=== PATIENT | female | born 1990 | race Caucasian/White ===

== ENCOUNTER → 2018-06-08 13:39 | Outpatient (CLI) | payer OTHER, SELFPAY ==
[2018-06-08 18:43] LABS: Chlamydia Trachomatis by PCR Negative (Negative); Neisserai gonorrhoeae by PCR Negative (Negative); Probe Check PASS; Sample Adequacy Control PASS; Specimen Processing Control PASS
== END ==
PROVIDERS: Visit Provider Obstetrics & Gynecology
DX: Z11.3 Encounter for screening for infections with a predominantly sexual mode of transmission (principal); Z32.01 Encounter for pregnancy test, result positive
CPT/HCPCS: 87491; 87591

== ENCOUNTER → 2018-06-22 14:57 | Outpatient (CLI) | payer OTHER, SELFPAY ==
[2018-06-22 15:50] LABS: Absolute Neutrophil Count 5.8 X10^3/uL (2.0-7.7); Basophil# 0.02 X10^3/uL; Basophil% 0.2 % (0-1); Eosinophil# 0.02 X10^3/uL; Eosinophils% 0.2 % (0-5); Hematocrit 39.5 % (37-47); Hemoglobin 13.2 g/dl (12.0-15.0); Mean Corp Hgb Conc 33.4 g/gl (32-36); Mean Corpuscular Hgb 31.2 pg (27.0-32.0); Mean Corpuscular Volume 93.4 fL (81-99); Mean Platelet Vol. 10.9 fl (6.2-12.0); Monocyte# 0.52 X10^3/uL; Monocyte% 6.4 % (0-10); Neutrophil # 5.82 X10^3/uL (2.7-7.7); Neutrophil % 72.1 % (47-70); Platelet Count 240 K/mm3 (150-450); RBC Distribution Width CV 12.7 % (11.6-14.6); RBC Distribution Width SD 43.1 fl (35.1-43.9); Red Blood Count 4.23 M/mm3 (4.2-5.4); White Blood Count 8.1 K/mm3 (4.4-11.0)
[2018-06-22 15:51] LABS: POSITIVE COUNT NO; POSITIVE DIFFERENTIAL NO; POSITIVE MORPHOLOGY NO
[2018-06-22 16:16] LABS: Color, Urine Yellow (Yellow); Glucose, Dipstick Normal (Normal); Ketone-Dipstick Negative (Negative); Leukocyte Esterase-Dipstick 500 /ul (Negative); Nitrite-Dipstick Negative (Negative); Occult Blood-Urine Negative /ul (Negative); Protein-Dipstick Negative (Negative); Specific Gravity, Urine 1.025 (1.002-1.030); Urine Bilirubin Dipstick Negative (Negative); Urine Clarity Clear (Clear); Urine Urobilinogen Normal (Normal)
[2018-06-22 16:17] LABS: Thyroid Stim Hormone (TSH) 2.02 uIU/mL (0.358-3.74)
[2018-06-22 16:52] LABS: Amphetamine Urine VISTA NEGATIVE (<1000 ng/mL); Barbiturate Urine VISTA NEGATIVE (< 200 ng/mL); Benzodiazepine Urine VISTA NEGATIVE (< 200 ng/mL); Cocaine Urine VISTA NEGATIVE (< 300 ng/mL); Ecstacy Urine VISTA NEGATIVE (< 500 ng/mL); Methadone Urine VISTA NEGATIVE (< 300 ng/mL); PCP Urine VISTA NEGATIVE (< 25 ng/mL); THC Urine VISTA NEGATIVE (< 50 ng/mL); Vista UDS pH Range 6
[2018-06-23 10:09] LABS: HIV - WCH Non-Reactive (Nonreactive); Rubella IgG 26.2 IU/mL
[2018-06-24 11:36] LABS: HEPATITIS B SURFACE AG Negative (Negative); Hep C Antibodies <0.1 s/co ratio (0.0-0.9)
[2018-06-25 03:42] LABS: Prenatal RPR NONREACTIVE (NONREACTIVE)
== END ==
PROVIDERS: Visit Provider Obstetrics & Gynecology
DX: Z34.81 Encounter for supervision of other normal pregnancy, first trimester (principal)
CPT/HCPCS: 36415; 80307; 81002; 84443; 85025; 86703; 86762; 86803; 87340

== ENCOUNTER → 2018-11-01 08:42 | Outpatient (CLI) | payer OTHER, SELFPAY ==
[2018-11-01 12:06] LABS: Hematocrit 37.6 % (37-47); Hemoglobin 12.4 g/dl (12.0-15.0); Mean Corpuscular Hgb 32.2 pg (27.0-32.0); Mean Corpuscular Volume 97.7 fL (81-99); Mean Platelet Vol. 11.7 fl (6.2-12.0); Platelet Count 178 K/mm3 (150-450); RBC Distribution Width CV 12.5 % (11.6-14.6); Red Blood Count 3.85 M/mm3 (4.2-5.4); White Blood Count 8.7 K/mm3 (4.4-11.0)
[2018-11-01 12:07] LABS: Glucose Challenge Gest 1H 50g 102 mg/dL (70-140)
[2018-11-01 12:19] LABS: Scan Indicated on CBC? Y/N NO
== END ==
PROVIDERS: Visit Provider Obstetrics & Gynecology
DX: Z34.83 Encounter for supervision of other normal pregnancy, third trimester (principal)
CPT/HCPCS: 36415; 82950; 85027

== ENCOUNTER → 2018-11-29 09:26 | Outpatient (CLI) | payer OTHER, SELFPAY ==
[2018-11-29 11:10] LABS: Hematocrit 36.8 % (37-47); Hemoglobin 12.2 g/dl (12.0-15.0); Mean Corp Hgb Conc 33.2 g/gl (32-36); Mean Corpuscular Hgb 31.6 pg (27.0-32.0); Mean Corpuscular Volume 95.3 fL (81-99); Platelet Count 185 K/mm3 (150-450); RBC Distribution Width CV 12.4 % (11.6-14.6); RBC Distribution Width SD 42.5 fl (35.1-43.9); Red Blood Count 3.86 M/mm3 (4.2-5.4)
[2018-11-29 11:13] LABS: Scan Indicated on CBC? Y/N NO
[2018-11-29 11:16] LABS: Protein, Urine (Random) 21.9 mg/dL (<11.9)
[2018-11-29 11:18] LABS: ALB/GLOB Ratio 0.8 RATIO (0.9-2.4); AST(SGOT) 18 U/L (15-37); Alanine Aminotransfer ALT/SGPT 28 U/L (13-56); Albumin, Serum 2.8 g/dL (3.2-5.0); Alkaline Phosphatase 98 U/L (45-117); Anion Gap 9 (5-15); BUN 7 mg/dL (7-18); BUN/Creat Ratio 13.1 RATIO (10-20); Calcium,Total 8.2 mg/dL (8.5-10.1); Chloride 108 mmol/L (98-107); Creatinine, Serum 0.54 mg/dL (0.55-1.02); EST Glomerular Filtration Rate 146 mL/min (>60); Est Glom Filt Rate - Afr Amer 177 mL/min (>60); Globulin 3.7 g/dL (2.2-4.2); Glucose 81 mg/dL (74-106); Potassium 3.8 mmol/L (3.5-5.1); Protein, Total 6.5 g/dL (6.4-8.2); Sodium Level 141 mmol/L (136-145); Uric Acid 3.3 mg/dL (2.6-6.0)
== END ==
PROVIDERS: Visit Provider Obstetrics & Gynecology
DX: O13.3 Gestational [pregnancy-induced] hypertension without significant proteinuria, third trimester (principal); Z3A.00 Weeks of gestation of pregnancy not specified
CPT/HCPCS: 36415; 80053; 82570; 84156; 84550; 85027

== ENCOUNTER → 2019-01-04 09:15 | Outpatient (CLI) | payer OTHER, SELFPAY ==
[2019-01-04 10:55] LABS: Hematocrit 36.1 % (37-47); Hemoglobin 11.6 g/dl (12.0-15.0); Mean Corp Hgb Conc 32.1 g/gl (32-36); Mean Corpuscular Hgb 30.8 pg (27.0-32.0); Mean Corpuscular Volume 95.8 fL (81-99); Mean Platelet Vol. 10.8 fl (6.2-12.0); Platelet Count 191 K/mm3 (150-450); RBC Distribution Width CV 12.8 % (11.6-14.6); RBC Distribution Width SD 42.8 fl (35.1-43.9); Red Blood Count 3.77 M/mm3 (4.2-5.4); Scan Indicated on CBC? Y/N NO; White Blood Count 8.7 K/mm3 (4.4-11.0)
[2019-01-04 11:24] LABS: Protein, Urine (Random) 24.6 mg/dL (<11.9)
[2019-01-04 11:35] LABS: ALB/GLOB Ratio 0.7 RATIO (0.9-2.4); AST(SGOT) 19 U/L (15-37); Alanine Aminotransfer ALT/SGPT 29 U/L (13-56); Albumin, Serum 2.8 g/dL (3.2-5.0); Alkaline Phosphatase 167 U/L (45-117); Anion Gap 8 (5-15); BUN 6 mg/dL (7-18); BUN/Creat Ratio 9.8 RATIO (10-20); Calcium,Total 8.3 mg/dL (8.5-10.1); Chloride 106 mmol/L (98-107); Creatinine, Serum 0.61 mg/dL (0.55-1.02); EST Glomerular Filtration Rate 125 mL/min (>60); Est Glom Filt Rate - Afr Amer 151 mL/min (>60); Globulin 3.8 g/dL (2.2-4.2); Glucose 83 mg/dL (74-106); Potassium 3.9 mmol/L (3.5-5.1); Protein, Total 6.6 g/dL (6.4-8.2); Sodium Level 139 mmol/L (136-145); Uric Acid 3.5 mg/dL (2.6-6.0)
== END ==
PROVIDERS: Visit Provider Obstetrics & Gynecology
DX: O13.3 Gestational [pregnancy-induced] hypertension without significant proteinuria, third trimester (principal); Z36.85 Encounter for antenatal screening for Streptococcus B; Z3A.00 Weeks of gestation of pregnancy not specified
CPT/HCPCS: 36415; 80053; 82570; 84156; 84550; 85027; 87081

== ENCOUNTER → 2019-01-05 10:17 | Outpatient (CLI) | payer OTHER, SELFPAY ==
[2019-01-05 11:24] LABS: 24 Hour Urine Protein 294.7 mg/24HR (<150 MG/24HR); 24HR. UA Prot. Total Volume 3070 mL; Urine Protein (24 Hour) 9.6 mg/dL (<11.9)
== END ==
PROVIDERS: Visit Provider Obstetrics & Gynecology
DX: O13.3 Gestational [pregnancy-induced] hypertension without significant proteinuria, third trimester (principal); Z3A.00 Weeks of gestation of pregnancy not specified
CPT/HCPCS: 81050; 82570; 84156

== ENCOUNTER 2019-01-12 22:05 | Inpatient (IN) | payer OTHER, SELFPAY ==
[2019-01-12] MEDS: Lactated Ringers 1,000 ML 50 ML IV (22:40)
[2019-01-12 22:53] LABS: Absolute Lymphocyte Count 1.96 X10^3/ul (0.83-4.51); Absolute Neutrophil Count 6.4 X10^3/uL (2.0-7.7); Basophil# 0.02 X10^3/uL; Basophil% 0.2 % (0-1); Eosinophil# 0.04 X10^3/uL; Eosinophils% 0.4 % (0-5); Hematocrit 35.2 % (37-47); Hemoglobin 11.7 g/dl (12.0-15.0); Lymphocyte # 1.96 X10^3/ul (4.0); Lymphocyte % 21.9 % (19-41); Mean Corp Hgb Conc 33.2 g/gl (32-36); Mean Corpuscular Hgb 30.8 pg (27.0-32.0); Mean Corpuscular Volume 92.6 fL (81-99); Mean Platelet Vol. 10.8 fl (6.2-12.0); Monocyte# 0.51 X10^3/uL; Monocyte% 5.7 % (0-10); Neutrophil # 6.39 X10^3/uL (2.7-7.7); Neutrophil % 71.2 % (47-70); Platelet Count 185 K/mm3 (150-450); RBC Distribution Width SD 43.7 fl (35.1-43.9)
[2019-01-12 22:54] LABS: POSITIVE COUNT NO; POSITIVE DIFFERENTIAL NO; POSITIVE MORPHOLOGY NO
--- NOTE | 2019-01-12 23:03 | PCM.HP.OB ---
- Problem List (1) 38 weeks gestation of Status: Acute (2) Gestational hypertension Status: Acute Qualifiers: Trimester: third trimester Qualified Code(s): O13.3 - Gestational [-induced] hypertension without significant proteinuria, third trimester History Date of Admission: 01/12/19 Final ÓSCAR: 01/24/19 Final ÓSCAR Source: LMP Gestational age: 38 Weeks and 4 Days History of this : This is a 28 year-old, G [2], P [1], at 38 2/7 weeks gestational age with hx gestational hypertension presenting for induction of labor. She denies headache, vision changes, shortness of breath or abdominal pain. + mild contractions felt in her back. Denies vaginal bleeding or fluid leaking. Fetus is active. 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 Allergies No Known Allergies Allergy (Verified 01/12/19 22:15) Home Medications: Home Medications RX: Vits [Prenatabs FA ] 1 tablet PO DAILY 10/10/16 Aspirin [Aspirin, Baby] 81 mg PO DAILY@0800 01/12/19 Smoking Status: Never smoker Alcohol: None Number of Fetus(es): 1 Heart Tracin, moderate variability, + accelerations, no decelerations TOCO Analysis: 1/10 min History Past Pregnancies: Past Pregnancies Delivery Date Name GA/Weeks Outcome Route Weight Gender Labor Length Anesthesia Delivery Location Provider FOB 11/2016 Mack 38 Living VAVD 8lb6oz MALE 24 Epidural [facility] Labs: Labs 01/12/19 01/14/19 22:35 06:05 WBC 9.0 13.4 H RBC 3.80 L 3.34 L Hgb 11.7 L 10.2 L Hct 35.2 L 31.7 L MCV 92.6 94.9 MCH 30.8 30.5 MCHC 33.2 32.2 RDW 13.0 12.5 RDW Differential 43.7 41.8 Plt Count 185 194 MPV 10.8 11.3 Immature Gran % (Auto) 0.600 Neut % (Auto) 71.2 H Lymph % (Auto) 21.9 [place] % (Auto) 5.7 Eos % (Auto) 0.4 Baso % (Auto) 0.2 Absolute Neuts (auto) 6.4 Absolute Lymphs (auto) 1.96 Total Counted Not Reportable Mom's Problem List Problem Status Onset Code 38 weeks gestation of Acute Z3A.38 Gestational hypertension Acute O13.9 Duplicated collecting system Chronic Q62.5 Mom's Labs & Results 01/12/19 01/12/19 01/13/19 22:35 22:35 07:54 WBC 9.0 RBC 3.80 L Hgb 11.7 L Hct 35.2 L MCV 92.6 MCH 30.8 MCHC 33.2 RDW 13.0 RDW Differential 43.7 Plt Count 185 MPV 10.8 Immature Gran % (Auto) 0.600 Neut % (Auto) 71.2 H Lymph % (Auto) 21.9 [place] % (Auto) 5.7 Eos % (Auto) 0.4 Baso % (Auto) 0.2 Absolute Neuts (auto) 6.4 Absolute Lymphs (auto) 1.96 Total Counted Not Reportable POC Glucose 86 Blood Type A POSITIVE Antibody Screen NEGATIVE 01/14/19 06:05 WBC 13.4 H RBC 3.34 L Hgb 10.2 L Hct 31.7 L MCV 94.9 MCH 30.5 MCHC 32.2 RDW 12.5 RDW Differential 41.8 Plt Count 194 MPV 11.3 Immature Gran % (Auto) Neut % (Auto) Lymph % (Auto) [place] % (Auto) Eos % (Auto) Baso % (Auto) Absolute Neuts (auto) Absolute Lymphs (auto) Total Counted POC Glucose Blood Type Antibody Screen Course Did the patient receive Yes care? Labs Blood Type: A RH: POSITIVE RPR/VDRL/Syphilis Nonreactive Rubella status Immune HbSAg Negative Date Done: 06/22/18 Chlamydia Negative Gonorrhea Negative HIV/AIDS Non-Reactive Group B Strep: Negative Current Obstetrical History Gestational Diabetes No Incompetent Cervix No Infertility No IUGR No Macrosomia No Hypertension/Pre-eclampsia Yes Placenta Previa/Abruption No PTL/PROM No Uterine anomaly No Oligohydramnios No Polyhydramnios No Multiple gestation No Past Medical History Asthma No Diabetes No Hypertension No Heart disease No Mitral valve prolapse No Neurologic/Seizure disorder/ No Migraines Kidney disease No Liver disease No Varicosities No Clotting disorders/Hx of DVT No Thyroid Dysfunction No Other medical diseases No Psychiatric disorders No Major trauma No Abnormal PAP smear No Sleep apnea No Mammogram in the last 2 years No Social History Marital Status: Alleged father Miguel Garcia Smoking No Smoking Status Never smoker Expected Infant Delivery Method: Spontaneous Vaginal Number of Visits: 14 Review of Systems Cardiovascular: Denies: Chest Pain, Edema Respiratory: Denies: Shortness of Breath Gastrointestinal: Denies: Abdominal Pain, Nausea, Vomiting Gynecological: Denies: Vaginal bleeding Psychiatric: Reports: Anxiety Physical Exam Vitals: BP 141/89 P 75 T 97.6 R 18 General: Alert, Oriented x3, Cooperative, No apparent distress HEENT: Atraumatic, Normocephalic Cardiovascular: Regular rate, Regular Rhythm, Normal S1, Normal S2 Lungs: Clear to auscultation, Normal air movement Abdomen: Soft, Non Tender, Non-Distended, Gravid Extremities:: No edema Neurological: Deep Tendon Reflexes 2+/4 and Symmetrical, Neuro grossly intact, - - No clonus GRINDER CHIPPER: Normal external genitalia Estimated gestational size: Appropriate for gestational size Presentation: Cephalic Cervix Dilation (cm): 2.5 Station: -2 Effacement (%): 60 Assessment/Plan All Active Problems (Last Updated 01/12/19 @ 23:32 by Neeta Bruno MD) 38 weeks gestation of (Acute) Gestational hypertension (Acute) This is a 28 year-old, G [2], P [1], at 38 2/7 weeks gestational age with gHTN, Cat I FHR -Membranes stripped -Cervix favorable - plan pitocin induction -Continuous monitoring -Plan of care discussed with patient including r/b/i/a for pitocin. IOL r/b/i also reviewed. Consents signed. -LARC declined.
[2019-01-12 23:31] VITALS: BMI 31.1
[2019-01-12] MEDS: Oxytocin 30 units/NS 500 ml 30 UNITS/500 ML IV.SOLN IV (23:43)
[2019-01-13] MEDS: Lactated Ringers 1,000 ML 50 ML IV ×3 (06:34→16:35)
[2019-01-13] MEDS: fentaNYL-bupivacaine (epidural) 100 ML BAG EPIDURAL ×3 (07:33→16:35)
--- NOTE | 2019-01-13 07:40 | NURSING ---
Dr. Oliveira was notified at 620 and was in a c section at the time. notified Ayo at 07 and was in room to perform epidural at 07.
[2019-01-13 08:01] LABS: Bedside Glucose 86 mg/dL (70-110)
[2019-01-13] MEDS: Oxytocin 30 units/NS 500 ml 30 UNITS/500 ML IV.SOLN 334 UNITS IV (18:30)
[2019-01-13] MEDS: Methylergonovine 0.2 MG/ML Ampul IM (18:33)
--- NOTE | 2019-01-13 18:49 | DCINST_ITS ---
Discharge Diet: No Restrictions May resume sexual activity in: 4-6 weeks Additional Activity Instructions:: Nothing in the vagina for 4-6 weeks. You may return to work/school in 6 weeks. Additional Instructions: If you experience any of the following, contact your healthcare provider. * Bleeding that soaks a pad every hour for 2 hours * Fever 100.4 or higher * Unrelieved abdominal pain * Problems urinating (including inability to urinate or burning while urinating). * Visual changes * Severe headache * Flu-like symptoms * Pain or redness in one of both of your breasts * Pain, warmth, tenderness or swelling in your legs, especially the calf area * Frequent nausea and vomiting * Symptoms of depression or anxiety If you experience any of the following, call 911 or go to the nearest Emergency Room. * Chest pain * Problems breathing * Seizure activity * Partial or complete paralysis of a body part, slurred speech, weakness or drooping of the face, or a sudden inability to walk or hold your balance Allergies/Adverse Reactions: Allergies No Known Allergies Allergy (Verified 01/12/19 22:15) Medications to take at Discharge Vits [Prenatabs FA ] 1 tablet PO DAILY 10/10/16 Aspirin [Aspirin, Baby] 81 mg PO DAILY@0800 01/12/19 Please Follow Up With: Karina Schulte MD - [phone] When: Call to make an appointment with your doctor in 6 weeks. Test Results: Test results from this visit will be discussed in further detail at your follow- up appointment, if applicable. Proposed Discharge Date: 01/15/19
--- NOTE | 2019-01-13 18:49 | PCM.DCVAG ---
Discharge Diet: No Restrictions May resume sexual activity in: 4-6 weeks Additional Activity Instructions:: Nothing in the vagina for 4-6 weeks. You may return to work/school in 6 weeks. Additional Instructions: If you experience any of the following, contact your healthcare provider. Bleeding that soaks a pad every hour for 2 hours Fever 100.4 or higher Unrelieved abdominal pain Problems urinating (including inability to urinate or burning while urinating). Visual changes Severe headache Flu-like symptoms Pain or redness in one of both of your breasts Pain, warmth, tenderness or swelling in your legs, especially the calf area Frequent nausea and vomiting Symptoms of depression or anxiety If you experience any of the following, call 911 or go to the nearest Emergency Room. Chest pain Problems breathing Seizure activity Partial or complete paralysis of a body part, slurred speech, weakness or drooping of the face, or a sudden inability to walk or hold your balance Allergies/Adverse Reactions: Allergies No Known Allergies Allergy (Verified 01/12/19 22:15) Medications to take at Discharge Vits [Prenatabs FA ] 1 tablet PO DAILY 10/10/16 Aspirin [Aspirin, Baby] 81 mg PO DAILY@0800 01/12/19 Please Follow Up With: Karina Schulte MD - [phone] When: Call to make an appointment with your doctor in 6 weeks. Test Results: Test results from this visit will be discussed in further detail at your follow-up appointment, if applicable. Proposed Discharge Date: 01/15/19
--- NOTE | 2019-01-13 18:50 | PCM.OB.VAG ---
Vaginal Delivery Maternal Presentation: Medically Indicated Induction 38 2/7 wk PIH for induction of labor Method of Induction: Pitocin, Amniotomy Medical Reason for Induction: Gestational Hypertension Amniotic Membrane Rupture Type: Artificial Amniotic Fluid Description: Clear Final ÓSCAR: 01/24/19 Gestational age: 38 Weeks and 4 Days Date of Procedure: 01/13/19 Pre-Operative Diagnosis: 38 3/7 wk PIH induction Post-Operative Diagnosis: same Surgery/ Procedure Performed: Spontaneous Vaginal Delivery Type of Anesthesia: Epidural Description of Procedure: of a mcmillan viable male over intact perineum. Head delivered ASHLEIGH. OP and nares bulb suctioned. No nuchal cord. Shoulders delivered easily. Infant to maternal abdomen with spontaneous cry. PP exam: 2nd degree perineal laceration repaired under epidural with 3-0 Vicryl to hemostatic and intact Placenta delivered by spont expulsion, expression. 3V cord, normal appearing with trailing membranes. Continued intermittent gushes of blood noted. Bimanual massage / manual inspection. Uterus well contracted then and clots evacuated from upper vagina. Methergine 0.2 mg IM in R thigh as prophylactic dose as pt on Pitocin up to 16 mIU/min for induction. Banjo curettage also performed of lower uterine segment. Excellent response to interventions EBL 450 cc Pt and infant tolerated delivery well. To recovery, stable condition. Ray Daniela and needle counts correct x two Presentation: Vertex, ASHLEIGH Placental Delivery Description: Spontaneous, Expressed, Curettage Placenta Disposition: [facility] Cord Vessel Description: 3 Vessels Cord Entanglement: None Drain: [place] to straight drain Estimated Blood Loss: 450 A gender: Male (1 minute): 8 (5 minute): 9 Episiotomy Description: None Laceration: Midline, Perineal Extension/lac, Vaginal Extension/lac, 2nd degree Medications given after delivery: IV Pitocin, IM Methergin - Methergine given prophylactically Prolonged pitocin.
[2019-01-13] MEDS: Oxytocin 30 units/NS 500 ml 30 UNITS/500 ML IV.SOLN 167 UNITS IV (19:00)
[2019-01-13] MEDS: Ondansetron 4 MG/2 ML Vial IV (19:24)
--- NOTE | 2019-01-13 23:27 | NURSING ---
Epidural catheter taken out, blue tip intact, pt. tolerated well.
[2019-01-14] VITALS: BP 127/70; PULSE 62; RESP 16; TEMP 36.9; O2SAT 97
[2019-01-14 04:42] VITALS: BP 107/70; PULSE 69; RESP 15; TEMP 36.4; O2SAT 96
[2019-01-14 06:29] LABS: Hematocrit 31.7 % (37-47); Hemoglobin 10.2 g/dl (12.0-15.0); Mean Corp Hgb Conc 32.2 g/gl (32-36); Mean Corpuscular Hgb 30.5 pg (27.0-32.0); Mean Corpuscular Volume 94.9 fL (81-99); Mean Platelet Vol. 11.3 fl (6.2-12.0); Platelet Count 194 K/mm3 (150-450); RBC Distribution Width CV 12.5 % (11.6-14.6); RBC Distribution Width SD 41.8 fl (35.1-43.9); Red Blood Count 3.34 M/mm3 (4.2-5.4); White Blood Count 13.4 K/mm3 (4.4-11.0)
[2019-01-14 06:37] LABS: Scan Indicated on CBC? Y/N NO
[2019-01-14 09:30] VITALS: BP 100/80; PULSE 129; RESP 16; TEMP 36.2; O2SAT 97
[2019-01-14] MEDS: Prenatal Vits Tablet 1 TABLET PO (10:57)
[2019-01-14] MEDS: Acetaminophen 500 MG Tablet 1000 MG PO (10:59)
[2019-01-14 12:15] VITALS: BP 107/71; PULSE 107; RESP 16; TEMP 36.1
--- NOTE | 2019-01-14 13:45 | PCM.PN.OB ---
Patient Problems: Active and Suspected Problems (Last Updated 01/12/19 @ 23:32 by Neeta Bruno MD) 38 weeks gestation of (Acute) Gestational hypertension (Acute) Subjective: No issues overnight. Feels well. Denies heavy lochia. Headache earlier resolved with Tylenol. Denies abdominal pain. Has mild cramping. She is bottlefeeding. Infant blood sugars doing well. Objective: AVSS - Physical Exam General: Alert, Oriented x3, Cooperative, No apparent distress HEENT: Atraumatic, Normocephalic Lungs: Clear to auscultation, Normal air movement Cardiovascular: Regular rate, Regular Rhythm, Normal S1, Normal S2 Abdomen: Soft, Non Tender, Non-Distended, - - Lochia scant Extremities: No edema, No Calf Tenderness Neurological: Neuro grossly intact Psych/Mental Status: Normal Affect, Appropriate, Alert and oriented to time, place, person, mood and affect Vital Signs Temp Pulse Resp BP Pulse Ox 97.2 F L 66 16 117/63 97 01/14/19 16:00 01/14/19 16:00 01/14/19 16:00 01/14/19 16:00 01/14/19 09:30 Oxygen Delivery Method Room Air Weight: 104.054 kg Body Mass Index (BMI) 31.1 Intake and Output for Last 24 Hours 01/12/19 01/13/19 01/14/19 23:59 23:59 23:59 Intake Total 4155 / 4155 700 / 700 Output Total 2400 / 2400 1900 / 1900 Balance 1755 / 1755 -1200 / -1200 Laboratory Tests Past 24 Hrs 01/14/19 06:05 WBC 13.4 H RBC 3.34 L Hgb 10.2 L Hct 31.7 L MCV 94.9 MCH 30.5 MCHC 32.2 RDW 12.5 RDW Differential 41.8 Plt Count 194 MPV 11.3 Medical Necessity - Tobacco Use Smoking Status: Never smoker Assessment/Plan All Active Problems (Last Updated 01/12/19 @ 23:32 by Neeta Bruno MD) 38 weeks gestation of (Acute) Gestational hypertension (Acute) This is a 28 year-old, G [2], P [2002] PPD#1 s/p doing well. -hx gHTN - BPs wnl -Bottlefeeding -Male - circ planned -Routine care -Rh positive
[2019-01-14 16:00] VITALS: BP 117/63; PULSE 66; RESP 16; TEMP 36.2
[2019-01-14] MEDS: Ibuprofen 600 MG Tablet PO (20:48)
[2019-01-14 20:51] VITALS: BP 103/67; PULSE 75; RESP 16; TEMP 36.5
[2019-01-15 01:30] VITALS: BP 106/69; PULSE 60; RESP 16; TEMP 36.2
--- NOTE | 2019-01-15 02:55 | PCM.DCVAG ---
Discharge Diet: No Restrictions Discharge Activity: Return to Normal Activity, May Not Drive, May Shower, May Take a Tub Bath May resume sexual activity in: 4-6 weeks Lifting Restrictions: 20lb Additional Activity Instructions:: Nothing in the vagina for 4-6 weeks. You may return to work/school in 6 weeks. Call your doctor if you observe: Fever of 101 or Higher, Inability to urinate, Inability to have a bowel movement, Using more than one pad per hour, Shortness of breath, Chest pain, Calf discomfort, Uncontrolled pain Cleanse incision/area with: Soap & Water Additional Instructions: If you experience any of the following, contact your healthcare provider. Bleeding that soaks a pad every hour for 2 hours Fever 100.4 or higher Unrelieved incision or abdominal pain Swelling, redness, discharge or bleeding from your incision or episiotomy site Your incision begins to separate Problems urinating (including inability to urinate or burning while urinating). Visual changes Severe headache Flu-like symptoms Pain or redness in one of both of your breasts Pain, warmth, tenderness or swelling in your legs, especially the calf area Frequent nausea and vomiting Symptoms of depression or anxiety If you experience any of the following, call 911 or go to the nearest Emergency Room. Chest pain Problems breathing Seizure activity Partial or complete paralysis of a body part, slurred speech, weakness or drooping of the face, or a sudden inability to walk or hold your balance Allergies/Adverse Reactions: Allergies No Known Allergies Allergy (Verified 01/12/19 22:15) Medications to take at Discharge Vits [Prenatabs FA ] 1 tablet PO DAILY 10/10/16 Docusate Sodium [Colace] 100 mg PO BID PRN PRN #60 capsule 01/15/19 Ibuprofen [Motrin] 600 mg PO Q8H PRN #30 tablet 01/15/19 The following prescriptions were given: Docusate Sodium [Colace] 100 mg PO BID PRN PRN #60 capsule PRN Reason: Constipation Ibuprofen [Motrin] 600 mg PO Q8H PRN #30 tablet PRN Reason: Pain Please Follow Up With: Neeta Bruno MD When: 7-10 days for blood pressure check Please Follow Up With: Karina Schulte MD - When: 6 weeks Test Results: Test results from this visit will be discussed in further detail at your follow-up appointment, if applicable. Proposed Discharge Date: 01/15/19
--- NOTE | 2019-01-15 02:59 | DCINST_ITS ---
Discharge Diet: No Restrictions Discharge Activity: Return to Normal Activity, May Not Drive, May Shower, May Take a Tub Bath May resume sexual activity in: 4-6 weeks Lifting Restrictions: 20lb Additional Activity Instructions:: Nothing in the vagina for 4-6 weeks. You may return to work/school in 6 weeks. Call your doctor if you observe: Fever of 101 or Higher, Inability to urinate, Inability to have a bowel movement, Using more than one pad per hour, Shortness of breath, Chest pain, Calf discomfort, Uncontrolled pain Cleanse incision/area with: Soap & Water Additional Instructions: If you experience any of the following, contact your healthcare provider. * Bleeding that soaks a pad every hour for 2 hours * Fever 100.4 or higher * Unrelieved incision or abdominal pain * Swelling, redness, discharge or bleeding from your incision or episiotomy site * Your incision begins to separate * Problems urinating (including inability to urinate or burning while urinating). * Visual changes * Severe headache * Flu-like symptoms * Pain or redness in one of both of your breasts * Pain, warmth, tenderness or swelling in your legs, especially the calf area * Frequent nausea and vomiting * Symptoms of depression or anxiety If you experience any of the following, call 911 or go to the nearest Emergency Room. * Chest pain * Problems breathing * Seizure activity * Partial or complete paralysis of a body part, slurred speech, weakness or drooping of the face, or a sudden inability to walk or hold your balance Allergies/Adverse Reactions: Allergies No Known Allergies Allergy (Verified 01/12/19 22:15) Medications to take at Discharge Vits [Prenatabs FA ] 1 tablet PO DAILY 10/10/16 Docusate Sodium [Colace] 100 mg PO BID PRN PRN #60 capsule 01/15/19 Ibuprofen [Motrin] 600 mg PO Q8H PRN #30 tablet 01/15/19 The following prescriptions were given: Docusate Sodium [Colace] 100 mg PO BID PRN PRN #60 capsule PRN Reason: Constipation Ibuprofen [Motrin] 600 mg PO Q8H PRN #30 tablet PRN Reason: Pain Please Follow Up With: Neeta Bruno MD When: 7-10 days for blood pressure check Please Follow Up With: Karina Schulte MD - When: 6 weeks Test Results: Test results from this visit will be discussed in further detail at your follow- up appointment, if applicable. Proposed Discharge Date: 01/15/19
[2019-01-15 06:52] VITALS: BP 114/78; PULSE 69; RESP 16; TEMP 36.3
--- NOTE | 2019-01-15 07:50 | PCM.PN.OB ---
Patient Problems: Active and Suspected Problems (Last Updated 01/12/19 @ 23:32 by Neeta Bruno MD) 38 weeks gestation of (Acute) Gestational hypertension (Acute) Subjective: No issues overnight. Looks forward to going home today. Objective: AVSS - Physical Exam General: Alert, Oriented x3, Cooperative, No apparent distress HEENT: Atraumatic, Normocephalic Lungs: Normal air movement Cardiovascular: Regular rate Abdomen: Soft, Non Tender, Non-Distended, - - Fundus firm and nontender Extremities: No edema, No Calf Tenderness Neurological: Neuro grossly intact Psych/Mental Status: Normal Affect, Appropriate, Alert and oriented to time, place, person, mood and affect Vital Signs Temp Pulse Resp BP Pulse Ox 97.4 F L 69 16 114/78 97 01/15/19 06:52 01/15/19 06:52 01/15/19 06:52 01/15/19 06:52 01/14/19 09:30 Oxygen Delivery Method Room Air Weight: 104.054 kg Body Mass Index (BMI) 31.1 Intake and Output for Last 24 Hours 01/13/19 01/14/19 01/15/19 23:59 23:59 23:59 Intake Total 4155 / 4155 700 / 700 Output Total 2400 / 2400 1900 / 1900 Balance 1755 / 1755 -1200 / -1200 Medical Necessity - Tobacco Use Smoking Status: Never smoker Assessment/Plan All Active Problems (Last Updated 01/12/19 @ 23:32 by Neeta Bruno MD) 38 weeks gestation of (Acute) Gestational hypertension (Acute) This is a 28 year-old, G [2], P [2] PPD#2 s/p doing well. -d/c home today
== END 2019-01-15 07:30 | disposition home or self-care (01) | DRG 807 ==
PROVIDERS: Obstetrics & Gynecology; Admitting Provider Obstetrics & Gynecology; Visit Provider Obstetrics & Gynecology
DX: O13.4 Gestational [pregnancy-induced] hypertension without significant proteinuria, complicating childbirth (principal); O70.1 Second degree perineal laceration during delivery; Q62.5 Duplication of ureter; Z3A.38 38 weeks gestation of pregnancy; Z37.0 Single live birth
CPT/HCPCS: 59025; 59050; 82962; 85025; 85027; 86850; 86900; 99218; J7120; G0378; J2405

== ENCOUNTER → 2021-05-15 13:53 | Outpatient (CLI) | payer OTHER, SELFPAY ==
[2021-05-15 15:21] LABS: International Normalized Ratio 1.1; Prothrombin Time (Protime)PT. 13.2 SECONDS (11.7-14.9)
[2021-05-15 15:23] LABS: Partial Thromboplast Time 30.7 Seconds (24.1-36.2)
== END ==
PROVIDERS: Visit Provider Obstetrics & Gynecology
DX: O26.20 Pregnancy care for patient with recurrent pregnancy loss, unspecified trimester (principal); Z3A.00 Weeks of gestation of pregnancy not specified
CPT/HCPCS: 36415; 85610; 85730

== ENCOUNTER 2022-01-08 11:44 | Outpatient (CLI) | payer OTHER, SELFPAY ==
[2022-01-08 12:40] LABS: Absolute Lymphocyte Count 1.21 X10^3/uL (0.83-4.51); Absolute Neutrophil Count 4.9 X10^3/uL (2.0-7.7); Basophil# 0.05 X10^3/uL; Basophil% 0.8 % (0-1); Eosinophil# 0.02 X10^3/uL; Eosinophils% 0.3 % (0-5); Hemoglobin 13.4 g/dL (12.0-15.0); Lymphocyte # 1.21 X10^3/ul (0.83-4.51); Lymphocyte % 18.3 % (19-41); Mean Corp Hgb Conc 34.4 g/dL (32-36); Mean Corpuscular Hgb 31.4 pg (27.0-32.0); Mean Corpuscular Volume 91.3 fL (81-99); Mean Platelet Vol. 11.1 fl (6.2-12.0); Monocyte# 0.42 X10^3/uL; Monocyte% 6.4 % (0-10); NRBC Flagged by Analyzer 0 % (0-5); Neutrophil # 4.89 X10^3/uL (2.7-7.7); Neutrophil % 73.9 % (47-70); Platelet Count 233 K/mm3 (150-450); RBC Distribution Width CV 13.3 % (11.6-14.6); RBC Distribution Width SD 45.2 fl (35.1-43.9); Red Blood Count 4.27 M/mm3 (4.2-5.4); White Blood Count 6.6 K/mm3 (4.4-11.0)
[2022-01-08 12:44] LABS: Color, Urine Yellow (Yellow); Glucose, Dipstick Normal (Normal); Ketone-Dipstick Negative (Negative); Leukocyte Esterase-Dipstick 500 /ul (Negative); Nitrite-Dipstick Negative (Negative); Occult Blood-Urine 25 /ul (Negative); Protein-Dipstick Negative (Negative); Specific Gravity, Urine 1.015 (1.002-1.030); Urine Bilirubin Dipstick Negative (Negative); Urine Clarity Sl. Cloudy (Clear); Urine Urobilinogen Normal (Normal); Urine pH 6.5 (5.0 - 8.0)
[2022-01-08 13:18] LABS: Amphetamine Urine VISTA NEGATIVE (<1000 ng/mL); Barbiturate Urine VISTA NEGATIVE (< 200 ng/mL); Benzodiazepine Urine VISTA NEGATIVE (< 200 ng/mL); Cocaine Urine VISTA NEGATIVE (< 300 ng/mL); Ecstacy Urine VISTA NEGATIVE (< 500 ng/mL); Methadone Urine VISTA NEGATIVE (< 300 ng/mL); PCP Urine VISTA NEGATIVE (< 25 ng/mL); THC Urine VISTA NEGATIVE (< 50 ng/mL); Vista UDS pH Range 6
[2022-01-08 13:24] LABS: Thyroid Stim Hormone (TSH) 2.34 uIU/mL (0.358-3.74)
[2022-01-08 13:31] LABS: HIV - WCH Non-Reactive (Nonreactive); Hepatitis B Surface Antigen Non-Reactive (Nonreactive); Hepatitis C Antibody Non-Reactive (Nonreactive); Rubella IgG Reactive (Nonreactive); Syphilis Antibodies Non-reactive
[2022-01-10 00:07] LABS: Chlamydia By Nucleic Acid AMP Negative (Negative)
[2022-01-10 09:13] LABS: Gonococcus By Nucleic Acid AMP Negative (Negative)
[2022-01-13 15:59] LABS: HPV Reflexed? NOT INDICATED
== END 2022-01-08 23:59 | disposition home or self-care (01) ==
LOC: WOBLAB 11:45
PROVIDERS: Visit Provider Obstetrics & Gynecology
DX: Z34.81 Encounter for supervision of other normal pregnancy, first trimester (principal)
CPT/HCPCS: 36415; 80307; 81002; 84443; 85025; 86703; 86762; 86780; 86803; 87086; 87340; 87491; 87591; 88175; G0145

== ENCOUNTER → 2022-05-06 | Outpatient (CLI) | payer OTHER, SELFPAY ==
[2022-05-06 12:39] LABS: Hematocrit 33.5 % (37-47); Hemoglobin 10.8 g/dL (12.0-15.0); Mean Corp Hgb Conc 32.2 g/dL (32-36); Mean Corpuscular Hgb 29.5 pg (27.0-32.0); Mean Corpuscular Volume 91.5 fL (81-99); Mean Platelet Vol. 11.2 fl (6.2-12.0); Platelet Count 217 K/mm3 (150-450); RBC Distribution Width CV 13.2 % (11.6-14.6); RBC Distribution Width SD 43.8 fl (35.1-43.9); Red Blood Count 3.66 M/mm3 (4.2-5.4); White Blood Count 8.1 K/mm3 (4.4-11.0)
[2022-05-06 12:48] LABS: Glucose Challenge Gest 1H 50g 115 mg/dL (70-140)
== END | disposition home or self-care (01) ==
PROVIDERS: Visit Provider Obstetrics & Gynecology
DX: Z34.82 Encounter for supervision of other normal pregnancy, second trimester (principal)
CPT/HCPCS: 36415; 82950; 85027

== ENCOUNTER → 2022-07-14 | Outpatient (CLI) | payer OTHER, SELFPAY ==
[2022-07-14 10:13] LABS: Absolute Lymphocyte Count 1.51 X10^3/uL (0.83-4.51); Absolute Neutrophil Count 7.6 X10^3/uL (2.0-7.7); Basophil# 0.06 X10^3/uL; Basophil% 0.6 % (0-1); Eosinophil# 0.07 X10^3/uL; Eosinophils% 0.7 % (0-5); Hematocrit 31.9 % (37-47); Lymphocyte # 1.51 X10^3/ul (0.83-4.51); Lymphocyte % 14.9 % (19-41); Mean Corp Hgb Conc 31.3 g/dL (32-36); Mean Corpuscular Hgb 27.5 pg (27.0-32.0); Mean Corpuscular Volume 87.6 fL (81-99); Mean Platelet Vol. 10.3 fl (6.2-12.0); Monocyte# 0.72 X10^3/uL; Monocyte% 7.1 % (0-10); NRBC Flagged by Analyzer 0 % (0-5); Neutrophil # 7.59 X10^3/uL (2.7-7.7); Neutrophil % 74.9 % (47-70); Platelet Count 202 K/mm3 (150-450); RBC Distribution Width CV 14.5 % (11.6-14.6); RBC Distribution Width SD 46.5 fl (35.1-43.9); Red Blood Count 3.64 M/mm3 (4.2-5.4); White Blood Count 10.1 K/mm3 (4.4-11.0)
[2022-07-14 10:36] LABS: Protein, Urine (Random) 17.5 mg/dL (<11.9); Protein:Creat Ratio 262 mg/g CRE (0-200)
[2022-07-14 10:48] LABS: ALB/GLOB Ratio 0.6 RATIO (0.9-2.4); AST(SGOT) 22 U/L (15-37); Alanine Aminotransfer ALT/SGPT 22 U/L (13-56); Albumin, Serum 2.6 g/dL (3.2-5.0); Alkaline Phosphatase 201 U/L (45-117); Anion Gap 8 (5-15); BUN 5 mg/dL (7-18); BUN/Creat Ratio 8.4 RATIO (10-20); Calcium,Total 8.4 mg/dL (8.5-10.1); Chloride 108 mmol/L (98-107); Creatinine, Serum 0.59 mg/dL (0.55-1.02); EST Glomerular Filtration Rate 127 mL/min (>60); Est Glom Filt Rate - Afr Amer 154 mL/min (>60); Glucose 85 mg/dL (74-106); LDH 158 U/L (84-246); Potassium 3.6 mmol/L (3.5-5.1); Protein, Total 6.6 g/dL (6.4-8.2); Sodium Level 140 mmol/L (136-145)
== END | disposition home or self-care (01) ==
LOC: LABSPEC 09:53
PROVIDERS: Visit Provider Student in an Organized Health Care Education/Training Program
DX: Z36.85 Encounter for antenatal screening for Streptococcus B (principal); I10 Essential (primary) hypertension
CPT/HCPCS: 36415; 80053; 82570; 83615; 84156; 85025; 87081; 87086; 87088

== ENCOUNTER 2022-07-21 19:00 | Inpatient (IN) | payer OTHER, SELFPAY ==
[2022-07-21] MEDS: Lactated Ringers 1,000 ML 50 ML IV (19:40)
[2022-07-21 19:52] VITALS: BMI 30.5
[2022-07-21 19:55] LABS: Absolute Lymphocyte Count 1.62 X10^3/uL (0.83-4.51); Absolute Neutrophil Count 8.4 X10^3/uL (2.0-7.7); Basophil# 0.05 X10^3/uL; Basophil% 0.5 % (0-1); Eosinophil# 0.05 X10^3/uL; Eosinophils% 0.5 % (0-5); Hematocrit 33.7 % (37-47); Hemoglobin 10.7 g/dL (12.0-15.0); Lymphocyte # 1.62 X10^3/ul (0.83-4.51); Lymphocyte % 14.8 % (19-41); Mean Corp Hgb Conc 31.8 g/dL (32-36); Mean Corpuscular Hgb 27.7 pg (27.0-32.0); Mean Corpuscular Volume 87.3 fL (81-99); Mean Platelet Vol. 10.9 fl (6.2-12.0); Monocyte# 0.64 X10^3/uL; Monocyte% 5.9 % (0-10); NRBC Flagged by Analyzer 0 % (0-5); Neutrophil # 8.43 X10^3/uL (2.7-7.7); Neutrophil % 76.9 % (47-70); Platelet Count 209 K/mm3 (150-450); RBC Distribution Width CV 15.8 % (11.6-14.6); RBC Distribution Width SD 48.7 fl (35.1-43.9); Red Blood Count 3.86 M/mm3 (4.2-5.4); White Blood Count 10.9 K/mm3 (4.4-11.0)
[2022-07-21 20:13] VITALS: BP 157/93; PULSE 98; TEMP 36.7
[2022-07-21] MEDS: Oxytocin 30 units/NS 500 ml 30 UNITS/500 ML IV.SOLN IV (20:40)
[2022-07-21 22:06] LABS: ALB/GLOB Ratio 0.6 RATIO (0.9-2.4); AST(SGOT) 20 U/L (15-37); Alanine Aminotransfer ALT/SGPT 19 U/L (13-56); Albumin, Serum 2.4 g/dL (3.2-5.0); Alkaline Phosphatase 206 U/L (45-117); Anion Gap 7 (5-15); BUN 6 mg/dL (7-18); BUN/Creat Ratio 9.5 RATIO (10-20); Calcium,Total 8.6 mg/dL (8.5-10.1); Chloride 109 mmol/L (98-107); Creatinine, Serum 0.63 mg/dL (0.55-1.02); EST Glomerular Filtration Rate 117 mL/min (>60); Est Glom Filt Rate - Afr Amer 142 mL/min (>60); Estimated Creatinine Clearance 152.05 ml/min; Globulin 3.8 g/dL (2.2-4.2); Glucose 122 mg/dL (74-106); Potassium 3.8 mmol/L (3.5-5.1); Protein, Total 6.2 g/dL (6.4-8.2); Sodium Level 141 mmol/L (136-145)
[2022-07-21 23:57] VITALS: BP 134/77; PULSE 75; TEMP 36.8
[2022-07-22] VITALS (51 sets, daily range): BP systolic 121–175; BP diastolic 65–98; PULSE 61–118; RESP 16–20; TEMP 36.4–37.3; O2SAT 81–100
[2022-07-22] MEDS: LACTATED RINGERS 500 ML 999 ML IV (01:05)
[2022-07-22] MEDS: fentaNYL-bupivacaine (epidural) 100 ML BAG EPIDURAL ×3 (02:05→10:50)
[2022-07-22] MEDS: Lactated Ringers 1,000 ML 200 ML IV ×2 (05:00→10:20)
--- NOTE | 2022-07-22 08:00 | PCM.HP.BLA ---
History and Physical Date of Admission: 07/21/22 HPI: at 37/4 weeks, ÓSCAR 08/07/2022, admitted for induction of labor for gestational hypertension. Patient had elevated blood pressures in the office, diagnosed with gestational hypertension. Plan for induction of labor today. Denies regular contractions, leaking of fluid, vaginal bleeding. Reports movement. Denies headache, vision changes, chest pain or shortness of breath, nausea or vomiting, diarrhea or constipation, fevers or chills. complicated by: Gestational hypertension, history of gestational hypertension as well DENTAL FINANCIAL COORDINATOR history: G1: 38-week , gestational hypertension G2: 38-week G3: 10-week SAB G4: Current Medical history: Denies Surgical history: Denies Medications: Calcium, Colace, iron, magnesium, Allergies: No known drug allergies Social history: Denies tobacco, alcohol, drug use Family history: No history of blood clots or bleeding disorders Review of system: Negative otherwise stated above Physical exam: Vital signs: On admission blood pressure 150s/90s General: No acute distress HEENT: Normocephalic/atraumatic, PERRLA Cardiorespiratory: No increased effort Abdomen: Soft, nontender, gravid Extremities: Minimal edema Neurologic: Cranial nerves II through XII grossly intact, no focal deficits Musculoskeletal: Strength 5 out of 5 throughout extremities Cervical exam on admission 3 cm per RN heart rate: 130/mod lisbet/+accel/no decel [place]: q4-5 panel: A+ blood type GBS negative HIV negative Hepatitis B/C neg Syphilis negative Rubella immune Gonorrhea/chlamydia negative Admission labs: CBC within normal limits aside from anemia at 10.7 hemoglobin, CMP within normal limits. Assessment/plan: 31-year-old G4, P2 at 37/4 weeks, admitted for induction of labor for gestational hypertension. Complicated by gestational hypertension. ?Admit to labor and delivery ?Induction of labor with Pitocin and AROM ?Epidural when patient desires ?GBS negative
[2022-07-22] MEDS: Oxytocin 30 units/NS 500 ml 30 UNITS/500 ML IV.SOLN 334 UNITS IV (12:35)
[2022-07-22] MEDS: miSOPROStol 200 MCG Tablet 1000 MCG RC (12:50)
--- NOTE | 2022-07-22 13:00 | EX.PCM.OBRPT ---
Maternal Data Information ÓSCAR Calculator Estimated Delivery Date Method Current WG Current Estimate 08/07/22 LMP (Certain) 37w 5d Vaginal Delivery Operative Information Date of Procedure: 07/22/22 Pre-Operative Diagnosis: [place] intrauterine , gestational hypertension Post-Operative Diagnosis: [place] intrauterine , gestational hypertension Surgery / Procedure Performed: Spontaneous Vaginal Delivery Type of Anesthesia: Epidural Estimated Blood Loss: 600cc Findings Description of Procedure: Spontaneous vaginal delivery of viable infant female. Nuchal cord x1, loose, reduced. Baby to mom. Cord clamped and cut. Spontaneous delivery of placenta. Second-degree laceration repaired in usual fashion, hemostatic. 1000 mcg Cytotec placed per rectum. A Gender: Female (1 minute): 8 (5 minute): 9
[2022-07-22] MEDS: 0.9% Saline Lock 10 ML Syringe IV (15:12)
[2022-07-22] MEDS: Acetaminophen 500 MG Tablet 1000 MG PO (23:47)
[2022-07-23] MEDS: Ibuprofen 600 MG Tablet PO ×3 (01:42→13:49)
[2022-07-23 03:53] VITALS: BP 128/77; PULSE 61; PULSE 64; RESP 18; TEMP 36.5; O2SAT 100
[2022-07-23 06:10] LABS: Hematocrit 29.9 % (37-47); Hemoglobin 9.3 g/dL (12.0-15.0); Mean Corp Hgb Conc 31.1 g/dL (32-36); Mean Corpuscular Hgb 27.5 pg (27.0-32.0); Mean Corpuscular Volume 88.5 fL (81-99); Mean Platelet Vol. 10.2 fl (6.2-12.0); Platelet Count 186 K/mm3 (150-450); RBC Distribution Width CV 15.9 % (11.6-14.6); RBC Distribution Width SD 49.1 fl (35.1-43.9); Red Blood Count 3.38 M/mm3 (4.2-5.4)
--- NOTE | 2022-07-23 07:15 | NURSING ---
report given to Chantal Brito RN who is assuming care of pt at this time
[2022-07-23 07:52] VITALS: BP 137/93; PULSE 72
[2022-07-23 07:53] VITALS: PULSE 71; O2SAT 99
[2022-07-23] MEDS: Acetaminophen 500 MG Tablet 1000 MG PO ×2 (07:55→13:49)
--- NOTE | 2022-07-23 07:57 | DCINST_ITS ---
Discharge Instructions Diet Discharge Diet: No restrictions Activity Discharge Activity: Return to Normal Activity, May Drive and May Shower May resume sexual activity in: 4-6 weeks Weight Bearing Status: Weight bearing as tolerated Dressing / Incision Call your doctor if your incision/area has: Continuous Slow Oozing and Foul Smelling Discharge Call your doctor if you observe: Fever of 101 or Higher, Shortness of breath and Chest pain Follow Up Care Please Follow Up With: Harlan Christian MD When: Thursday for blood pressure check Test Results: Test results from this visit will be discussed in further detail at your follow- up appointment, if applicable. Discharge Plan Admission Admit Date/Time: 07/21/22 19:00 Attending Provider: Tierney Christian Discharge Orders/Prescriptions Prescriptions: No Action Prenatabs FA 1 TABLET tablet 1 tab PO DAILY docusate sodium [DOK] 100 MG capsule 100 mg PO BID PRN PRN (Reason: Constipation) Qty: 60 0RF calcium 600 mg Capsule 600 mg PO DAILY magnesium Tablet 400 tab PO DAILY ferrous sulfate 27 mg iron Tablet 28 mg PO DAILY Disposition Discharge Orders: Discharge Patient (Routine); Ordered 07/23/22 Ordered By: Dr. Harlan Christian
--- NOTE | 2022-07-23 07:57 | PN.OBGYN_ITS ---
Subjective Subjective No overnight complaints Objective Data Objective Data Vital Signs: Vital Signs Temp Pulse Resp BP Pulse Ox O2 Del Method 97.7 F L 71 18 137/93 H 99 Room Air 07/23/22 03:53 07/23/22 07:53 07/23/22 03:53 07/23/22 07:52 07/23/22 07:53 07/23/22 03:53 Oxygen Delivery Method Room Air Weight: 225 lb Body Mass Index (BMI) 30.5 Intake & Output: Intake and Output for Last 24 Hours 07/21/22 07/22/22 07/23/22 23:59 23:59 23:59 Intake Total 11.33 / 16.66 5454.56 / 5454.56 Output Total 3100 / 3100 Balance 11.33 / 16.66 2354.56 / 2354.56 Lab / Micro Data Result Diagrams: 07/23/22 06:00 07/21/22 21:25 Labs: Laboratory Results - last 24 hr 07/23/22 06:00: WBC 12.0 H, RBC 3.38 L, Hgb 9.3 L, Hct 29.9 L, MCV 88.5, MCH 27.5, MCHC 31.1 L, RDW Std Deviation 49.1 H, RDW Coeff of Arthur 15.9 H, Plt Count 186, MPV 10.2 Micro: Microbiology 07/21/22 20:05 Nasal Secretion SARS-CoV-2 Antigen (Rapid) - Final Physical Exam Const alert, oriented x3, no apparent distress, average body habitus, healthy appearing and well nourished HEENT normocephalic and moist oral mucous membranes Eyes PERRL Neck full ROM Resp normal respiratory effort, no retractions and no use of accessory muscles Extremity normal to inspection, full ROM and no clubbing, cyanosis or edema Neuro moves all extremities and no focal motor deficits Psych mental status grossly normal, affect normal, speech normal and activity/motor behavior normal Assessment & Plan (1) : PLAN: day 1. Formula feeding. Pain well controlled. Gestational hypertension, asymptomatic denies headache, visual change, chest pain, shortness of breath, nausea vomit, right upper quadrant pain. Overall blood pressures nonsevere range, asymptomatic. Patient okay to discharge home to follow-up in office for blood pressure check. 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
[2022-07-23 08:40] VITALS: BP 137/93; PULSE 77; RESP 18; TEMP 36.2; O2SAT 99
[2022-07-23 12:30] VITALS: BP 132/90; PULSE 70; RESP 16; TEMP 36.4; O2SAT 99
[2022-07-23 12:35] VITALS: BP 132/90; PULSE 70
== END 2022-07-23 14:05 | disposition home or self-care (01) | DRG 807 ==
PROVIDERS: Admitting Provider Student in an Organized Health Care Education/Training Program; Visit Provider Student in an Organized Health Care Education/Training Program
DX: O13.4 Gestational [pregnancy-induced] hypertension without significant proteinuria, complicating childbirth (principal); Z37.0 Single live birth; O69.81X0 Labor and delivery complicated by cord around neck, without compression, not applicable or unspecified; O70.1 Second degree perineal laceration during delivery; Z3A.37 37 weeks gestation of pregnancy
CPT/HCPCS: 59025; 59050; 80053; 85025; 85027; 86850; 86900; 86901; 87811; 99218; J7120; A4216; G0378